=== PATIENT | male | born 1995 | race Caucasian/White ===

== ENCOUNTER 2017-11-18 04:52 | Inpatient (IN) | payer BC, SELFPAY ==
[2017-11-18] MEDS ORDERED: CEFAZOLIN 1 GM VIAL ONE (05:21)
[2017-11-18 05:26] LABS: #Basophils 0.1 thou/uL (0.0-0.2); #Eosinphils 0.1 thou/uL (0.0-0.7); #Lymphocytes 2.6 thou/uL (1.20-3.40); #Monocytes 0.3 thou/uL (0.11-0.59); #Neutrophils 10.1 thou/uL (1.40-6.50); %Basophils 0.5 % (0.0-1.0); %Eosinophils 0.7 % (0.0-10.0); %Lymphocytes 19.4 % (21.0-51.0); %Monocytes 2.3 % (0.0-10.0); %Neutrophils 77.1 % (42.0-75.0); Hemoglobin 14.6 g/dL (14.0-18.0); Mean Corpuscular HGB CONC 34.4 g/dL (32.0-36.0); Mean Platelet Volume 6.5 fL (7.4-10.4); Platelet Count 280 thou/uL (130-400); RBC Distribution Width 11.3 % (11.5-14.5); Red Blood Cell (RBC) Count 4.56 mill/uL (4.70-6.10); White Blood Cell (WBC) Count 13.1 thou/uL (4.8-10.8)
[2017-11-18] MEDS ORDERED: Fentanyl 100 MCG/2 ML VIAL ONE (05:33)
[2017-11-18 05:38] LABS: ALT (SGPT) 940 U/L (8-55); AST (SGOT) 998 U/L (5-34); Albumin 4.3 g/dL (3.5-5.0); Alcohol 198 mg/dL (Less than 10); Alkaline Phosphatase 77 U/L (40-150); Anion Gap 13 mmol/L (10-20); BUN (Urea Nitrogen) 13 mg/dL (8.9-20.6); Bilirubin, Total 0.3 mg/dL (0.2-1.2); Calc. Creatinine Clearance 0 mL/min (70-130); Calcium 8.1 mg/dL (7.8-10.44); Carbon Dioxide 19 mmol/L (22-29); Chloride 110 mmol/L (98-107); Estimated GFR-MDRD 87; Globulin 2.4 g/dL (2.4-3.5); Glucose 122 mg/dL (70-105); Lipase 29 U/L (8-78); Magnesium 2.3 mg/dL (1.6-2.6); Potassium 3.4 mmol/L (3.5-5.1); Protein, Total 6.7 g/dL (6.0-8.3); Sodium 139 mmol/L (136-145)
[2017-11-18 05:42] LABS: CKMB 4.1 ng/mL (0-6.6); Troponin I Less than 0.010 ng/mL (< 0.028)
[2017-11-18 05:46] LABS: INR-International Normal Ratio 1.1; PTT 26.4 SEC (22.9-36.1); Prothrombin Time 14.4 SEC (12.0-14.7)
[2017-11-18] MEDS ORDERED: Lidocaine 1% w/Epinephrine 1:100K 20 ML VIAL ONE (06:04)
[2017-11-18] MEDS ORDERED: Ondansetron HCl/PF 4 MG/2 ML Vial ONE (06:24)
[2017-11-18] MEDS ORDERED: Tranexamic Acid 1,000 MG in Sodium Chloride 0.9% 250 ML 250 ML IVPB SCH (07:00)
[2017-11-18 07:40] LABS: Bilirubin Negative (Negative); Blood, Urine Small (Negative); Clarity CLEAR (Clear); Glucose, Urine (Dipstick) Negative (Negative); Leukocyte Negative (Negative); Nitrite Negative (Negative); Protein, Urine (Dipstick) Negative (Neg-Trace); Specific Gravity, Urine 1.025 (1.002-1.036); Urobilinogen 0.2 mg/dL (0.2-1.0)
[2017-11-18 07:42] LABS: Bacteria/HPF None Seen HPF (None Seen); Hyaline Casts/LPF 4-6 HYALINE CAST LPF (0-3 Hyaline); Pathc Cast-AUWi Flag 0.87 (0-2.49); RBC/HPF None Seen HPF (0-3); Squamous Epithelial None Seen HPF (0-3); WBC/HPF None Seen HPF (0-3)
[2017-11-18] MEDS ORDERED: Lidocaine 1% (PF) 30 ML VIAL ONE (09:03)
[2017-11-18] MEDS ORDERED: Dextrose 50% Abboject 50 ML SYRINGE SLOW IVP PRN (09:20)
[2017-11-18] MEDS ORDERED: Dextrose 5% in Water 1,000 ML IV PRN (09:20)
[2017-11-18] MEDS: Acetaminophen 1,000 MG in Premix Bag 1 BAG IVPB SCH ×3 (09:26→23:09)
[2017-11-18] MEDS ORDERED: Famotidine/PF 20 mg/2ml Vial SLOW IVP SCH (09:30)
[2017-11-18 09:39] LABS: Hemoglobin 14.4 g/dL (14.0-18.0)
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
[2017-11-18] MEDS: Ondansetron HCl/PF 4 MG/2 ML Vial IVP PRN ×3 (10:32→21:49)
[2017-11-18] MEDS ORDERED: Iopamidol 370 76% 50 ML VIAL FS ONE (11:11)
[2017-11-18] MEDS ORDERED: ISOVUE-370 76%-LOCM 1 ML ONE (11:47)
[2017-11-18 11:58] VITALS: BMI 24.4
[2017-11-18] MEDS: Sodium Chloride 0.9% 1,000 ML IV SCH ×2 (12:36→20:39)
--- NOTE | 2017-11-18 13:21 | OP ---
PREOPERATIVE DIAGNOSIS: Grade 4 liver fracture. POSTOPERATIVE DIAGNOSIS: Grade 4 liver fracture. PROCEDURE: Abdominal aortogram and selective hepatic angiograms. SURGEON: Cal Diaz M.D. ANESTHESIA: Local. CONTRAST: 34 mL FLUOROSCOPY: 17 minutes. PROCEDURE IN DETAIL: After adequate anesthesia had been obtained, the patient was prepped and draped . A 1% lidocaine was used to infiltrate the right groin and ultrasound assisted femoral artery punct ure was carried down. A 5-[place] Islander dilator and sheath were placed following which a Contra catheter wa s advanced into the proximal aorta. Following this, angled John catheter and Bentson and then Glidew charlie were used to selectively cannulate the celiac axis. However, could not be advanced. A rim deny ter was then chosen and it did engage the celiac axis over the Glidewire, which was then advanced int o the hepatic artery. Rim catheter was removed and exchanged for an angled glide catheter, which was advanced into the hepatic artery and the wire removed. Selective injections x3 were obtained and th ere was no evidence of extravasation. The patient tolerated the procedure well.
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
[2017-11-18 15:23] LABS: Hemoglobin 14.5 g/dL (14.0-18.0)
[2017-11-18 21:26] LABS: Hemoglobin 13.9 g/dL (14.0-18.0)
[2017-11-18] MEDS: Famotidine/PF 20 mg/2ml Vial SLOW IVP SCH (21:58)
[2017-11-19] MEDS: Sodium Chloride 0.9% 1,000 ML IV SCH ×2 (02:05→04:59)
[2017-11-19 03:32] LABS: Hemoglobin 15.1 g/dL (14.0-18.0)
[2017-11-19 03:34] LABS: #Lymphocytes 1.2 thou/uL (1.20-3.40); #Monocytes 0.7 thou/uL (0.11-0.59); #Neutrophils 6.5 thou/uL (1.40-6.50); %Basophils 0.3 % (0.0-1.0); %Eosinophils 0.3 % (0.0-10.0); %Monocytes 8.7 % (0.0-10.0); %Neutrophils 76.6 % (42.0-75.0); Hemoglobin 15.1 g/dL (14.0-18.0); Mean Corpuscular HGB CONC 33.9 g/dL (32.0-36.0); Mean Corpuscular Hemoglobin 31.8 pg (27.0-31.0); Mean Corpuscular Volume 93.7 fL (78.0-98.0); Mean Platelet Volume 6.8 fL (7.4-10.4); Platelet Count 173 thou/uL (130-400); RBC Distribution Width 11.8 % (11.5-14.5); Red Blood Cell (RBC) Count 4.76 mill/uL (4.70-6.10); White Blood Cell (WBC) Count 8.5 thou/uL (4.8-10.8)
[2017-11-19 03:50] LABS: Anion Gap 12 mmol/L (10-20); BUN (Urea Nitrogen) 9 mg/dL (8.9-20.6); Calc. Creatinine Clearance 160 mL/min (70-130); Calcium 8.7 mg/dL (7.8-10.44); Carbon Dioxide 24 mmol/L (22-29); Chloride 106 mmol/L (98-107); Estimated GFR-MDRD Greater than 90; Glucose 108 mg/dL (70-105); Magnesium 2.1 mg/dL (1.6-2.6); Phosphorus 2.7 mg/dL (2.3-4.7); Potassium 4.2 mmol/L (3.5-5.1); Sodium 138 mmol/L (136-145)
[2017-11-19] MEDS: Ondansetron HCl/PF 4 MG/2 ML Vial IVP PRN ×2 (04:57→23:05)
[2017-11-19] MEDS: Acetaminophen 1,000 MG in Premix Bag 1 BAG IVPB SCH (05:00)
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
[2017-11-19] MEDS: Famotidine/PF 20 mg/2ml Vial SLOW IVP SCH ×2 (08:19→21:27)
[2017-11-19] MEDS ORDERED: Ibuprofen 800 MG TAB PO PRN (10:02)
[2017-11-19] MEDS ORDERED: Senokot 8.6 MG TAB PO PRN (10:02)
[2017-11-19] MEDS: traMADol HCl 50 MG TAB PO SCH ×4 (10:20→22:59)
[2017-11-19] MEDS: Acetaminophen 500 MG TAB PO SCH ×3 (10:20→23:05)
[2017-11-19 11:03] LABS: Hemoglobin 14.6 g/dL (14.0-18.0)
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
[2017-11-19] MEDS: traMADol HCl 50 MG TAB PO PRN ×2 (13:14→21:27)
[2017-11-20] MEDS: traMADol HCl 50 MG TAB PO SCH ×4 (04:49→22:57)
[2017-11-20] MEDS: Acetaminophen 500 MG TAB PO SCH ×4 (04:49→22:59)
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
[2017-11-20] MEDS ORDERED: Clopidogrel Bisulfate 75 MG TAB ONE (08:33)
[2017-11-20] MEDS: Polyethylene Glycol 3350 17 GM Packet PO SCH (09:30)
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
[2017-11-20] MEDS: traMADol HCl 50 MG TAB PO PRN (12:26)
[2017-11-20] MEDS: Famotidine/PF 20 mg/2ml Vial SLOW IVP SCH ×2 (12:27→21:41)
[2017-11-20] MEDS: Ondansetron HCl/PF 4 MG/2 ML Vial IVP PRN ×2 (14:09→19:20)
[2017-11-20] MEDS: Ibuprofen 800 MG TAB PO SCH ×4 (14:13→22:59)
[2017-11-20] MEDS ORDERED: Ketorolac Tromethamine 30 MG/ML VIAL IVP SCH (15:15)
[2017-11-20] MEDS ORDERED: Senokot 8.6 MG TAB PO SCH (15:30)
[2017-11-20] MEDS ORDERED: Silver Sulfadiazine 1% Cream 50 GM JAR TOP SCH (16:00)
[2017-11-20] MEDS ORDERED: Gabapentin 100 MG CAP PO SCH (17:15)
[2017-11-20] MEDS: Gabapentin 100 MG CAP PO SCH (21:41)
[2017-11-21] MEDS: Ondansetron HCl/PF 4 MG/2 ML Vial IVP PRN ×2 (04:50→11:13)
[2017-11-21] MEDS: traMADol HCl 50 MG TAB PO SCH ×4 (04:54→22:08)
[2017-11-21] MEDS: Acetaminophen 500 MG TAB PO SCH ×2 (04:55→10:10)
[2017-11-21 05:27] LABS: #Eosinphils 0.2 thou/uL (0.0-0.7); #Lymphocytes 1.2 thou/uL (1.20-3.40); #Monocytes 0.7 thou/uL (0.11-0.59); #Neutrophils 4.6 thou/uL (1.40-6.50); %Basophils 0.2 % (0.0-1.0); %Lymphocytes 17.6 % (21.0-51.0); %Monocytes 9.9 % (0.0-10.0); %Neutrophils 69.2 % (42.0-75.0); Mean Corpuscular HGB CONC 34.6 g/dL (32.0-36.0); Mean Corpuscular Hemoglobin 32.3 pg (27.0-31.0); Mean Corpuscular Volume 93.5 fL (78.0-98.0); Mean Platelet Volume 6.8 fL (7.4-10.4); Platelet Count 166 thou/uL (130-400); RBC Distribution Width 11.3 % (11.5-14.5); Red Blood Cell (RBC) Count 4.01 mill/uL (4.70-6.10); White Blood Cell (WBC) Count 6.6 thou/uL (4.8-10.8)
[2017-11-21] MEDS: Ibuprofen 800 MG TAB PO SCH ×3 (06:39→23:08)
[2017-11-21] MEDS: Polyethylene Glycol 3350 17 GM Packet PO SCH (09:06)
[2017-11-21] MEDS: Gabapentin 100 MG CAP PO SCH ×3 (09:12→22:07)
[2017-11-21] MEDS: Enoxaparin Sodium 30 MG/0.3 ML SYRINGE SC SCH (09:13)
[2017-11-21] MEDS: Famotidine/PF 20 mg/2ml Vial SLOW IVP SCH ×2 (10:11→22:33)
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
[2017-11-21] MEDS ORDERED: Ketorolac Tromethamine 30 MG/ML VIAL ONE (11:16)
[2017-11-21] MEDS ORDERED: HYDROcodone/Acetaminophen 10/325 mg Tablet PO PRN (11:19)
[2017-11-21] MEDS ORDERED: Ketorolac Tromethamine 30 MG/ML VIAL IVP SCH (11:30)
[2017-11-21] MEDS: Acetaminophen 325 MG TAB PO SCH ×3 (15:08→23:07)
[2017-11-22] MEDS: traMADol HCl 50 MG TAB PO SCH ×4 (03:57→22:12)
[2017-11-22] MEDS: Ibuprofen 800 MG TAB PO SCH ×3 (06:32→23:30)
[2017-11-22] MEDS: Acetaminophen 325 MG TAB PO SCH ×4 (06:32→23:30)
[2017-11-22] MEDS: Enoxaparin Sodium 30 MG/0.3 ML SYRINGE SC SCH (08:24)
[2017-11-22] MEDS: Polyethylene Glycol 3350 17 GM Packet PO SCH (08:24)
[2017-11-22] MEDS: Gabapentin 100 MG CAP PO SCH ×3 (08:25→21:13)
[2017-11-22] MEDS: Famotidine/PF 20 mg/2ml Vial SLOW IVP SCH ×2 (08:26→21:14)
[2017-11-22] MEDS: traMADol HCl 50 MG TAB PO PRN (10:18)
[2017-11-22] MEDS ORDERED: Magnesium Citrate 300 ML BOT PO SCH (15:15)
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
[2017-11-23] MEDS: traMADol HCl 50 MG TAB PO SCH (04:16)
[2017-11-23 05:31] LABS: Band 11 % (5-11); Eosinophils 6 % (0-10); Hemoglobin 12.9 g/dL (14.0-18.0); Lymphocytes 20 % (21-51); MDiff Complete? YES; Mean Corpuscular HGB CONC 34.1 g/dL (32.0-36.0); Mean Corpuscular Hemoglobin 31.6 pg (27.0-31.0); Mean Corpuscular Volume 92.5 fL (78.0-98.0); Mean Platelet Volume 6.2 fL (7.4-10.4); Monocytes 16 % (0-10); Neutrophil 47 % (42-75); Platelet Count 254 thou/uL (130-400); RBC Distribution Width 11.1 % (11.5-14.5); Red Blood Cell (RBC) Count 4.09 mill/uL (4.70-6.10); White Blood Cell (WBC) Count 5.9 thou/uL (4.8-10.8)
[2017-11-23] MEDS: Ibuprofen 800 MG TAB PO SCH (06:31)
[2017-11-23] MEDS: Acetaminophen 325 MG TAB PO SCH (06:31)
[2017-11-23 08:28] VITALS: BP 114/80; TEMP 98.1
== END 2017-11-23 10:10 | disposition home or self-care (01) | DRG 964 ==
LOC: ERS 04:52 → SURG A 07:59 → CCL 08:15 → CCU 08:55 → SURG A 11-19 11:57
PROVIDERS: ADMIT Thoracic Surgery (Cardiothoracic Vascular Surgery); ATTEND Thoracic Surgery (Cardiothoracic Vascular Surgery)
PROC: 30233N1 Transfusion of Nonautologous Red Blood Cells into Peripheral Vein, Percutaneous Approach (ICD-10-PCS; principal; 2017-11-18)
PROC: B4101ZZ Fluoroscopy of Abdominal Aorta using Low Osmolar Contrast (ICD-10-PCS; 2017-11-18)
PROC: B4121ZZ Fluoroscopy of Hepatic Artery using Low Osmolar Contrast (ICD-10-PCS; 2017-11-18)
PROC: 3E10X8Z Irrigation of Skin and Mucous Membranes using Irrigating Substance (ICD-10-PCS; 2017-11-18)
DX: S36.116A Major laceration of liver, initial encounter (principal); S06.9X9A Unspecified intracranial injury with loss of consciousness of unspecified duration, initial encounter; D62 Acute posthemorrhagic anemia; S31.619A Laceration without foreign body of abdominal wall, unspecified quadrant with penetration into peritoneal cavity, initial encounter; R40.2412 Glasgow coma scale score 13-15, at arrival to emergency department; S81.022A Laceration with foreign body, left knee, initial encounter; S51.012A Laceration without foreign body of left elbow, initial encounter; V86.09XA Driver of other special all-terrain or other off-road motor vehicle injured in traffic accident, initial encounter; Y92.481 Parking lot as the place of occurrence of the external cause; F17.210 Nicotine dependence, cigarettes, uncomplicated; F10.120 Alcohol abuse with intoxication, uncomplicated; F98.8 Other specified behavioral and emotional disorders with onset usually occurring in childhood and adolescence; K59.00 Constipation, unspecified
CPT/HCPCS: 12011; 36246; 36415; 36430; 51702; 70450; 71045; 71260; 72125; 72170; 74177; 75726; 76942; 80048; 80053; 80307; 81003; 81015; 82553; 83690; 83735; 84100; 84443; 84484; 85025; 85610; 85730; 86850; 86900; 86901; 93005; 96361; 96365; 96367; 96374; 96375; C1725; C1769; G0390; G8978-GP-CK; G8979-GP-CI; G8987-GO-CL; G8988-GO-CI; J0131; J0690; J1644; J1650; J1885; J2001; J2270; J2405; J3010; J7050; P9016; S0028

== ENCOUNTER 2017-11-26 08:10 | Emergency (ER) | payer BC ==
[2017-11-26] MEDS ORDERED: Magnesium Citrate 300 ML BOT ONE (08:51)
[2017-11-26 09:00] LABS: #Eosinphils 0.1 thou/uL (0.0-0.7); #Lymphocytes 0.9 thou/uL (1.20-3.40); #Monocytes 0.9 thou/uL (0.11-0.59); #Neutrophils 8.2 thou/uL (1.40-6.50); %Basophils 0.2 % (0.0-1.0); %Eosinophils 1.4 % (0.0-10.0); %Monocytes 8.8 % (0.0-10.0); %Neutrophils 80.6 % (42.0-75.0); Hemoglobin 14.4 g/dL (14.0-18.0); Mean Corpuscular HGB CONC 33.7 g/dL (32.0-36.0); Mean Corpuscular Hemoglobin 31.2 pg (27.0-31.0); Mean Corpuscular Volume 92.6 fL (78.0-98.0); Mean Platelet Volume 6.1 fL (7.4-10.4); Platelet Count 417 thou/uL (130-400); RBC Distribution Width 11.1 % (11.5-14.5); Red Blood Cell (RBC) Count 4.62 mill/uL (4.70-6.10); White Blood Cell (WBC) Count 10.2 thou/uL (4.8-10.8)
--- NOTE | 2017-11-26 09:06 | RAD ---
ABDOMEN ONE VIEW: History: Abdominal pain. FINDINGS/IMPRESSION: The bowel gas pattern is unremarkable. There fecal material in the colon. No suspicious calcification s are identified. POS: [facility]
[2017-11-26 09:24] LABS: ALT (SGPT) 141 U/L (8-55); AST (SGOT) 40 U/L (5-34); Albumin 4.3 g/dL (3.5-5.0); Alkaline Phosphatase 111 U/L (40-150); Anion Gap 17 mmol/L (10-20); BUN (Urea Nitrogen) 12 mg/dL (8.9-20.6); Bilirubin, Total 0.9 mg/dL (0.2-1.2); Calc. Creatinine Clearance 0 mL/min (70-130); Carbon Dioxide 21 mmol/L (22-29); Chloride 100 mmol/L (98-107); Estimated GFR-MDRD Greater than 90; Globulin 3.7 g/dL (2.4-3.5); Glucose 106 mg/dL (70-105); Potassium 4.7 mmol/L (3.5-5.1); Sodium 133 mmol/L (136-145)
== END 2017-11-26 11:42 | disposition home or self-care (01) ==
LOC: ERS 08:10
DX: K59.00 Constipation, unspecified (principal); F17.210 Nicotine dependence, cigarettes, uncomplicated; Z79.899 Other long term (current) drug therapy
CPT/HCPCS: 36415; 74018; 80053; 85025

== ENCOUNTER 2017-11-26 13:02 | Outpatient (CLI) | payer BC ==
[~2017-11-26 13:02] MED LIST: Lidocaine 4% Topical Sol 50 ML BOT ONE; Sodium Chloride 0.9% 15 ML NEB ONE
== END 2017-11-26 13:03 | disposition home or self-care (01) ==
LOC: WCC 13:02
PROVIDERS: ATTEND Family Medicine
DX: S81.802D Unspecified open wound, left lower leg, subsequent encounter (principal); S81.801D Unspecified open wound, right lower leg, subsequent encounter
CPT/HCPCS: 97602; A4218; J2001

== ENCOUNTER 2017-11-29 08:07 | Outpatient (CLI) | payer BC ==
[2017-11-29] MEDS ORDERED: Lidocaine 2% Jelly 5 ML TUBE ONE (10:00)
[2017-11-29] MEDS ORDERED: Sodium Chloride 0.9% 15 ML NEB ONE (10:00)
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
== END 2017-11-29 08:08 | disposition home or self-care (01) ==
LOC: WCC 08:07
PROVIDERS: ATTEND Family Medicine
DX: S41.102A Unspecified open wound of left upper arm, initial encounter (principal); S81.002A Unspecified open wound, left knee, initial encounter; F98.8 Other specified behavioral and emotional disorders with onset usually occurring in childhood and adolescence; Z90.49 Acquired absence of other specified parts of digestive tract; Z79.899 Other long term (current) drug therapy
CPT/HCPCS: 97602; 99203; A4218; G0463